=== PATIENT | female | born 1985 | race Caucasian/White ===

== ENCOUNTER 2016-07-18 11:49 | Inpatient (IN) | payer OTHER ==
[~2016-07-18] VITALS: Ht 12.7 cm; Wt 69.3 kg
--- NOTE | ~2016-07-18 | TXPLANREV ---
"PATIENT: PAT BILLINGS R | | [facility] UNIT #: [id number] | [address] AGE/SEX: 30 F : 85 | [address] | [place] [phone] ADMIT/REG DATE: 07/18/16 | ROOM: [facility] LOC: ADTC | ADTC | Treatment Plan/Staffing Review Date: 08/08/16 Treatment plan was reviewed and determined appropriate as written: yes, client is working on Grief packet and will be doing EMDR therapy on trauma of loss of 2 nephews, then the Relapse Pkt. We are hoping to have family session to share feelings letters with mom clients last day. Treatment plan was reviewed and the following changes/addition/deletions are necessary: Discharge plans were reviewed and determined appropriate as previously documented: Client is scheduled to discharge on 08/15/16, she will return to [facility] for aftercare counseling and group therapy on relapse prevention. She may seek out a specialist with EMDR as she responds well to this therapy. She also is to call sponsor 4-7x/week and attend meetings 3-4x/week. Discharge plans were reviewed and determined to be as follows: Other pertinent issues discussed during this staffing review include: Client is making good progress, seems invested in her recovery and seems appreciative of the legal intervention that helped her to get clean/sober. Staff Present: Ce Ahumada, Toshia Tello, Angelica Johnson, Crystal Tran PRIMARY COUNSELOR: Leyla Pantoja Client Signature Counselor Signature Date Time "
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
--- NOTE | ~2016-07-18 | INDIVTXPL2 ---
"PATIENT: PAT BILLINGS R | | [facility] UNIT #: [id number] | [address] AGE/SEX: 30 F : 85 | [address] | [place] [phone] ADMIT/REG DATE: 07/18/16 | ROOM: [facility] LOC: ADTC | ADTC | Individualized Treatment Plan DATE: 08/08/16 Problem Statement/Issue Identified: Client unresolved grief issues contributes to her continued drug use and spiritual struggles and needs to address these grief/spirituality issues to avoid relapse. Goal: Client is to address her grief over traumatic loss of nephews and spiritual struggles to help cope with feelings/grief and strengthen her recovery. Objectives/Activities to achieve goal: 1. Client is to fill out Grief packet, and process her feelings with counselor over loss of nephews. See counselor note. Due Date: 08/11/16 Complete: Incomplete: 2. Client is to do EMDR relaxation and see 6 minute video to get oriented to EMDR with counselor. See counselor note. Due Date: 08/08/16 Complete: Incomplete: 3. Client is to do EMDR on traumatic loss of nephews. See counselor note. Due Date: 08/11/16 Complete: Incomplete: Client Signature Date Counselor Signaure: Date Outcome/Measurement of Progress Towards Goal: Counselor Signature: Date "
--- NOTE | ~2016-07-18 | INDIVTXPL2 ---
"PATIENT: PAT BILLINGS R | | [facility] UNIT #: [id number] | [address] AGE/SEX: 30 F : 85 | [address] | [place] [phone] ADMIT/REG DATE: 07/18/16 | ROOM: [facility] LOC: ADTC | ADTC | Individualized Treatment Plan DATE: 08/08/16 Problem Statement/Issue Identified: Client needs to identify relapse warning signs and develop a plan to deal with them as they arise. Goal: Client is to learn about relapse prevention identifying her relapse triggers and how to cope with them. Objectives/Activities to achieve goal: 1. Client is to attend Relapse Prevention classes every Sunday 3pm while in treatment and participate. See class notes. Due Date: 08/15/16 Complete: Incomplete: 2. Client is to fill out Relapse Prevention packet identifying her top 5-10 relapse triggers and develop a plan of how to cope with each. Share with counselor/sponsor/aftercare counselor. Due Date: 08/15/16 and ongoing Complete: Incomplete: Client Signature Date Counselor Signaure: Date Outcome/Measurement of Progress Towards Goal: Counselor Signature: Date "
--- NOTE | ~2016-07-18 | INDIVTXPL2 ---
"PATIENT: PAT BILLINGS R | | [facility] UNIT #: [id number] | [address] AGE/SEX: 30 F : 85 | [address] | [place] [address] ADMIT/REG DATE: 07/18/16 | ROOM: [facility] LOC: ADTC | ADTC | Individualized Treatment Plan DATE: 07/21/16 Problem Statement/Issue Identified: Client continues to use drugs and involved in criminal behavior despite ongoing negative consequences. Goal: Client is to learn about alcoholism/drug addiction, identifying her consequences of her use and learning how to work a stronger AA/NA/ACUPUNCTURIST program of recovery. Objectives/Activities to achieve goal: 1. Client is to fill out Getting Started and Step 1 packets, identifying 15 values that were compromised due to use. Share with counselor and share selected pages in group. Due Date: GS 07/28/16 & St1 08/02/16 Complete: Incomplete: 2. Client is to get phone #'s of women in the 12 step programs and call as a temporary sponsor while in treatment. Share progress with counselor. Due Date: ongoing Complete: Incomplete: 3. Client is to attend and talk at AA/NA/ACUPUNCTURIST meetings weekly and participate or even ask for a topic that would benefit her. Due Date: ongoing Complete: Incomplete: Client Signature Date Counselor Signaure: Date Outcome/Measurement of Progress Towards Goal: Counselor Signature: Date "
--- NOTE | ~2016-07-18 | TXPLANREV ---
"PATIENT: PAT BILLINGS | | [facility] UNIT #: [id number] | [address] AGE/SEX: 30 F : 85 | [address] | [place] [phone] ADMIT/REG DATE: 07/18/16 | ROOM: [facility] LOC: ADTC | ADTC | Treatment Plan/Staffing Review Date: 08/01/16 Treatment plan was reviewed and determined appropriate as written: Client has finished step 1 and is to attend Family program and work on feelings letters. Treatment plan was reviewed and the following changes/addition/deletions are necessary: Discharge plans were reviewed and determined appropriate as previously documented: Discharge plans were reviewed and determined to be as follows: Client is being discharged on 08/15/16 and being referred back to [facility] in [place], plus [facility] AA/NA meetings and other AA/NA meetings and is to continue using temporary sponsor. Other pertinent issues discussed during this staffing review include: Some question came up when client was admitted to if she had a phone and this was addressed and no phone was found. Client is doing well with assignments, appears serious about working her AA/NA program of recovery and is using sponsor already!! Staff Present: Ce Gonzalez, Angelica Johnson, Lissa Pascual, Toshia Tello, Krysten Eubanks, Crystal Waggoner PRIMARY COUNSELOR: Client Signature Counselor Signature Date Time "
--- NOTE | ~2016-07-18 | INDIVTXPL2 ---
"PATIENT: PAT BILLINGS R | | [facility] UNIT #: [id number] | [address] AGE/SEX: 30 F : 85 | [address] | [place] [phone] ADMIT/REG DATE: 07/18/16 | ROOM: [facility] LOC: ADTC | ADTC | Individualized Treatment Plan DATE: 07/27/16 Problem Statement/Issue Identified: Client is experiencing family discord and lack of boundaries as a result of past drug usage and codependency tendencies. Goal: Client is to learn about effects of addiction on family and self and build honest communication with family owning her addiction and feelings to strengthen family support. Objectives/Activities to achieve goal: 1. Client is to attend and participate in family educational program to learn about how addiction has hurt her and family. See Family notes. Due Date: 07/31/16 Complete: Incomplete: 2. Client is to have a family session with mother to help with communication and hear her perspectives with the past issues/addiction. See Family note. Due Date: 07/31/16 Complete: Incomplete: 3. Client is to write feelings letters to mom/children and share with counselor/mom. See counselor/family note. Due Date: 08/15/16 Complete: Incomplete: Client Signature Date Counselor Signaure: Date Outcome/Measurement of Progress Towards Goal: Counselor Signature: Date "
--- NOTE | 2016-07-18 14:04 | NUR ---
Admit Note: Client is 30 y/o single female. She has 4 kids and is . DOC is marijuana and secondary is meth. Clt claims last use was end of May and took a couple of hits each. Came from [facility] residential where she spent last 23 days. Referred by [facility]. Lives with mother and she will do family participation. Clt had no contraband. Initial paperwork is done and she has started programming.
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
--- NOTE | 2016-07-18 20:18 | NUR ---
Education: 1 hour lecture given by counselor on relapse.
--- NOTE | 2016-07-18 20:26 | NUR ---
tech note: Client went for walk for rec, participated in guided meditation and attended AA meeting
--- NOTE | 2016-07-18 23:36 | NUR ---
Tech Note: Client attended the on unit A.A.Meeting. Client participated in Guided Meditation at 1930. Client was seen by doctor. SE: Getting admitted into treatment
--- NOTE | 2016-07-19 04:56 | NUR ---
Bed note: client was in bed with eyes closed and no distress at all bed checks.
--- NOTE | 2016-07-19 10:20 | NUR ---
Tech notes: Client is working on Getting started
--- NOTE | 2016-07-19 13:48 | NUR ---
Educational note: Client watched a video for education.
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
--- NOTE | 2016-07-19 17:17 | NUR ---
SPIRITUaL EDUCATION 1 HR. Clients were oriented to the group and learned difference between spirituality and mosque. We addressed GRATITUDE today with discussion, worksheet and activity.
--- NOTE | 2016-07-19 18:23 | NUR ---
Education: 1 Hour. Client attended "Self Esteem" lecture presented by staff.
--- NOTE | 2016-07-19 23:25 | NUR ---
tech note: client went on a walk for recreation & attended the onsite NA meeting. SE: NA meeting.
--- NOTE | 2016-07-20 05:11 | NUR ---
Bed Note: Clt lay motionless in bed with eyes closed showing no distress at all bed checks.
--- NOTE | 2016-07-20 11:17 | NUR ---
Tech Note: Client participated in Spiritual Enrichment. Client stated that she is working on, "How to Get Started in Treatment."
--- NOTE | 2016-07-20 11:30 | NUR ---
AM GRP 1.5 HRS, Ratio 1:11/ Clt offered great feedback to a peer who continues to want to argue w/ staff. This clt let her know staff is here to help them, and staying mad is going to deprive her of learning anything.
--- NOTE | 2016-07-20 17:04 | NUR ---
step education 1 hr/ Focus was on step 6 and looking at character defects and letting God remove them. Each person took some time looking at a list of character defects and wrote out answers to a set of questions and then shared and discussed. This client participated. She shared some defects are perfectionism, anxiety, and fear.
--- NOTE | 2016-07-20 19:15 | NUR ---
Education 1 Hour: Client heard a presentation on marijuana.
--- NOTE | 2016-07-20 22:12 | NUR ---
Education 1 HR: Clt watched video by Bashir "Danita Mejia" with staff present.
--- NOTE | 2016-07-20 22:37 | NUR ---
Tech Note: Clt walked for recreation, attended GM and onsite AA mtg. SE was AA mtg
--- NOTE | 2016-07-21 04:45 | NUR ---
Bed Note: Clt lay motionless in bed with eyes closed showing no distress at all bed checks.
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
--- NOTE | 2016-07-21 16:20 | NUR ---
Tech Note: Client listened to speaker Torsten Masterson and is working on Getting Started.
--- NOTE | 2016-07-21 16:46 | NUR ---
FAMILY - did call sister and no answer, did call her mom and then sister called back, they all want to be involved in her treatment. Client will get visits on Sunday with kids, sister and mom will visit. Mom says she is great daughter and mom, just needs to stay clean.
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
--- NOTE | 2016-07-21 20:58 | NUR ---
Tech note: client watched TV and movies. Walked to optional offiste AA meeting. SE:mtg with counselor
--- NOTE | 2016-07-22 04:59 | NUR ---
Bed note: Client was in bed with eyes closed and no distress at all bed checks.
--- NOTE | 2016-07-22 16:52 | NUR ---
Tech Note: Client attended the A.A.Meeting at [address] [place] [address] and is working on Step1. Client also had a visit.
--- NOTE | 2016-07-22 22:56 | NUR ---
Tech note: Client walked around the park a few times for rec. Client walked to an off site AA meeting. SE: Family
--- NOTE | 2016-07-23 05:02 | NUR ---
Bed note: client was in bed with eyes closed and no distress at all bed checks.
--- NOTE | 2016-07-23 15:33 | NUR ---
TECH NOTE: Client participated in big book study, attended mandaen, completed chores and watched tv/movies. Went on walk
--- NOTE | 2016-07-23 23:31 | NUR ---
tech note: Client participated in Community Clean & attended [employer] meeting. Client colored with peers. SE: [employer]
--- NOTE | 2016-07-24 04:46 | NUR ---
Bed note: client was in bed with eyes closed and no distress at all bed checks.
--- NOTE | 2016-07-24 15:17 | NUR ---
Tech note: Client is working on Step 1
--- NOTE | 2016-07-24 23:02 | NUR ---
Tech Note: Clt walked for recreation and attended onsite NA mtg. Watched tv and movies. SE was visits
--- NOTE | 2016-07-25 04:45 | NUR ---
Bed Note: Clt lay motionless in bed with eyes closed showing no distress at all bed checks.
--- NOTE | 2016-07-25 15:38 | NUR ---
Tech Note: Client participated in light stretching for morning exercise and went on an outdoor walk in the afternoon. Client stated that he is working on Step One.
--- NOTE | 2016-07-25 15:40 | NUR ---
1.5 hr res group/ratio 1:9/ Group heard a step one, a letter to addiction, and discussed the importants of keeping a balance of not doing to many nice things for others verses taking care of self. This client gave some good feedback and seems to be connecting with other females. She does tend to dominate the conversation and her along with some others had to be told to not talk out of turn as sometimes there were several trying to talk at once.
--- NOTE | 2016-07-25 15:48 | NUR ---
Education 1 Hour: Client watched the video, "How to Sabotage your Treatment."
--- NOTE | 2016-07-25 23:06 | NUR ---
Tech note: Client walked a mile for rec, did guided meditation and attended an onsite AA meeting. Client was up past genefew, r/d for being in the shower late. SE; 30 dayd
--- NOTE | 2016-07-26 04:23 | NUR ---
Education: 1 Hour. Client attended presentation by staff on "Step 1."
--- NOTE | 2016-07-26 05:17 | NUR ---
Bed note: Client was in bed with eyes closed and in no apparent distress at all bed checks.
--- NOTE | 2016-07-26 09:42 | NUR ---
Shonda notes: Client is working on BB and mtg with yong
--- NOTE | 2016-07-26 10:00 | NUR ---
IS 1 hr/ Client reports she is fine now as in Dr ruth she had complained of stomach cramp Sunday night and is . She was told by this counselor if this happens again and has any bleeding needs to go to ER. She has ultrasound today. Client did have GS packet done and has started on step 1. She assumes her family will be here . She shared she had busy weekend with chlld visits and really enjoyed this, more interaction and playing with them which she credits to recovery. Client expressed loves recovery. Is to finish step 1 and share other GS packet in group. Did go over GS with her.
--- NOTE | 2016-07-26 11:40 | NUR ---
Group 1.5 hr Ratio 1:7/Topics today were orientating two new clients to group rules and goals, a good bye letter to an addiction and being able to say no. Client shared how she struggles saying not to people especially family. Client heard codependency and or Alonon may be helpful.
--- NOTE | 2016-07-26 13:30 | NUR ---
Education note: Client attend educational speaker Eileen Zepeda
--- NOTE | 2016-07-26 16:27 | NUR ---
SPIRITUAL EDUCATION 1 HR. Newcomers were oriented to group. Todays topic was addicted self vs spiritual self which we discussed first then they depicted the contrast in artwork. The ones that finished first wrote letters to welcome anonymous newcomers.
--- NOTE | 2016-07-26 22:51 | NUR ---
Tech note : Client played catch phrase for rec and attended an onsite NA meeting. SE; Spirituality
--- NOTE | 2016-07-27 04:42 | NUR ---
Bed note: client was in bed with eyes closed and no distress at all bed checks.
--- NOTE | 2016-07-27 07:03 | NUR ---
Medication Note: Client took prn Tylenol for H/A rated 10.
--- NOTE | 2016-07-27 10:50 | NUR ---
Tech Note : Client missed morning meditation due to a severe headache. Client was given prn medication and returned to programming. Client participated in Spiritual Enrichment. Client stated that she is working on Step One.
--- NOTE | 2016-07-27 11:30 | NUR ---
Group 1.5 hrs. Ratio 1:9/ Topics were orientation for new clients to group, rules and goals. One client shared feeling packet.others gave feed back and other feelings were discussed. Client shared that she feels calm when she is angry because she knows that when she says something when angry it is hurtful to the other person.and she regrets saying it later. Her biggest fear is not knowing what happens next.
--- NOTE | 2016-07-27 13:10 | NUR ---
Education 1 Hour: Client heard a recovery speaker who addressed the subject of hope.
--- NOTE | 2016-07-27 14:00 | NUR ---
IS .5 hr/ Counselor met with client and mom was to be here by 1:30 but did not get here until 2:30. Client and counselor discussed more about her aftercare, she plans to live at home in [place], she can have visits daily for 8-10 hours a day all but Sunday she stated. She shared how she is very clean and involved with her kids, and how brought a portable oven and griddle so could make pancakes and cupcakes/cookies with her kids as they like to do those types of things. She told stor that one time she was accused of leaving a visit room a mess but her watermelon harvesting supervisor of visits defended her saying she always cleans room better than they found it. She is assigned to write feelings letters. Is working on step 1, told her to do page 11 first as it helps with letters. Hope to have family session at 1:00 on Sunday.
--- NOTE | 2016-07-27 17:00 | NUR ---
FAMILY EDUCATION 3 HRS. Client was accompanied by her mom. They took part in the discussion on the disease concept. Mom arrived a little late and was active in discussion and shared how hard it had been to watch her daughter's behaviors.
--- NOTE | 2016-07-27 20:35 | NUR ---
Education: 1 Hour. Client attended Morgan Hernández video "Step 5."
--- NOTE | 2016-07-27 22:58 | NUR ---
Client went on a walk for rec, participated in guided meditation, and attended the on unit A.A.Meeting. SE: Family Counseling
--- NOTE | 2016-07-28 05:29 | NUR ---
Bed Note: Client was in bed and motionless at all bed checks.
--- NOTE | 2016-07-28 12:28 | NUR ---
Group 1.5 Hr Ratio 03/07/Topics today were two Getting Started Packets, talking about when it was discovered when they knew they were addicted and relationships. Client shared how she could relate and talked about whatshe knows about the five love languages and how they are important to her.
--- NOTE | 2016-07-28 13:10 | NUR ---
PEER REVIEWS 1.5 HRS: Clt participated in peer review process and was able to give open, honest feedback to those receiving a review.
--- NOTE | 2016-07-28 14:27 | NUR ---
Tech Note: Client watched Recovery Issues Part 3. Is working on Step 1.
--- NOTE | 2016-07-28 20:17 | NUR ---
Tech note: Clt read guidelines as a grp, attended optional AA mtg and watched tv/movies. SE peer review
--- NOTE | 2016-07-29 05:20 | NUR ---
BED NOTE: Client was in bed, motionless with eyes closed all bed checks.
--- NOTE | 2016-07-29 11:11 | NUR ---
Medication Note: Client took prn Tylenol for H/A rated at 5.
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
--- NOTE | 2016-07-29 16:50 | NUR ---
Tech Note: Client attended NA Panel today and is working on Step 1 and the Big Book. She had visitors.
--- NOTE | 2016-07-29 20:14 | NUR ---
TECH NOTE: Client participated in beads for REC, attended offsite AA meeting and watched TV/Movies. SE: visits
--- NOTE | 2016-07-30 04:55 | NUR ---
Bed Note: Clt lay motionless in bed with eyes closed showing no distress at all bed checks.
--- NOTE | 2016-07-30 16:11 | NUR ---
Tech Note: Client is working on Feelings Letters. She went to [facility] and had visitors.
--- NOTE | 2016-07-30 22:56 | NUR ---
Tech Note: Client attended the on unit A.A.Panel. SE: Martir
--- NOTE | 2016-07-31 04:41 | NUR ---
Client was in bed and motionless at all bed checks.
--- NOTE | 2016-07-31 09:56 | NUR ---
Tech notes: Client is working on Fl's
--- NOTE | 2016-07-31 11:30 | NUR ---
Group 1.5 hr/ 10:1 Clients did give feedback for 2 peer reviews and then heard 2 peers share GS packets. This client was attentive and offered some feedback.
--- NOTE | 2016-07-31 13:36 | NUR ---
Education note: Client attended educational speaker Melissa on Tobacco
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
--- NOTE | 2016-07-31 17:00 | NUR ---
FAMILY EDUCATION 3 hrs. Client was accompanied by her mom. They took part in the discussion on the family roles, codependency and detachment. Client's mom was noted to have a placed a COURAGE TO CHANGE book in her purse which she did return after staff advised those books are used for reading each week.
--- NOTE | 2016-07-31 18:17 | NUR ---
EDUCATION 1 HR: Counselor gave lecture on forgiveness.
--- NOTE | 2016-07-31 21:00 | NUR ---
FAMILY GROUP 5:1/ HR: Client, peers and attending family members heard two families process FEELINGS LETTERS. Much of the focus tonight was on willingness to followthrough with what they are learning in treatment, i.e. sponsorship, meetings, communication, dealing with feelings, etc. This client attended alone, but she was active throughout with feedback, support, clarifying questions and some personal sharing. Client confronted a female peer for her apparent lack of feelings as she heard her mother's emotional letter. Client express her own guilt and shame for minimizing the effects her chemical use has had on her children and how it has sabotaged any career efforts on her part.
--- NOTE | 2016-07-31 23:32 | NUR ---
tech note: Client attended Family Session. SE: Family.
--- NOTE | 2016-08-01 05:38 | NUR ---
BED NOTE: Client was in bed, motionless with eyes closed all bed checks.
--- NOTE | 2016-08-01 14:31 | NUR ---
A.M. 1.5 hr res group/ratio 1:8/ Group heard 2 how to get started assignments and a letter to addiction. Discussed the importants of telling old friends you no longer use instead of I cant right now. This client gave a lot of feedback and advice. She then shared her how to get started and did a fair job. She got close to tears when talking about her kids. She was told to not itch herself or have her hands inside her shirt in group as she said she felt itchy and was scratching her chest area or reajusting somthing.
--- NOTE | 2016-08-01 15:00 | NUR ---
Relapse Prevention, 1.0 hours, Client attended and actively participated in relapse prevention education which focused on completing a relapse quiz and discussion.
--- NOTE | 2016-08-01 16:29 | NUR ---
Tech Note: Client participated in light stretching for morning exercise and went on an outdoor walk in the afternoon. Client stated that she is working on writing Feelings Letters. Client met with representatives from [employer].
--- NOTE | 2016-08-01 17:22 | NUR ---
Education 1 Hour: Client heard a presentation on Sexually Transmitted Disease.
--- NOTE | 2016-08-01 23:35 | NUR ---
TECH NOTE: Client Attended Alumni meeting, played Catch Phrase for REC, participated in Guided Meditation, and attended AA meeting. SE: Michele Hurst
--- NOTE | 2016-08-02 04:36 | NUR ---
Bed Note: Client was in bed and motionless at all bed checks.
--- NOTE | 2016-08-02 11:01 | NUR ---
Tech Notes: Client is working on Fl's
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
--- NOTE | 2016-08-02 12:52 | NUR ---
Education Note: Client attended education by [facility]
--- NOTE | 2016-08-02 18:20 | NUR ---
EDUCATION 1HR: Counselor gave presentation on Unresolved Anger.
--- NOTE | 2016-08-02 18:49 | NUR ---
SPIITUAL EDUCATION 1 HR. ORIENTED NEWCOMERS, AND TODAYS TOPIC WAS THE SPIRITUAL QUESTION GAME DESIGNED TO START PEOPLE THINKING ALONG SPIRITUAL LINES AND GET MORE COMFORTABLE DISCUSSING IT.
--- NOTE | 2016-08-02 22:31 | NUR ---
TECH NOTE: Client went on a walk for REC and attended NA meeting. SE: meeting with counselor
--- NOTE | 2016-08-03 04:49 | NUR ---
BED NOTE: Client was in bed, motionless with eyes closed all three bed checks.
--- NOTE | 2016-08-03 11:30 | NUR ---
Morning group: 1:10: 1.5 hrs. Clt attended and actively participated ingroup discussion. Gave good feedback on the feeling of shame and guilt. Commented about knowing what she needs to do to stay clean and that it is going to take more than willpower. Has a challenge for 24 hours to ask for help. Guerita Lea, student
--- NOTE | 2016-08-03 14:00 | NUR ---
Tech Note: Clt went on walk, watched "How to Sabotage Your Treatment" and is working on Feelings Letters and the Big Book.
--- NOTE | 2016-08-03 16:13 | NUR ---
Step education 1 hr/ Focus of education was on step 8 making amends. Each person wrote down answers of a set of questions on step 8 and then we discussed. This person participated and on the question do I have a relationship that needs healing? She said yes with her mom and kids.
--- NOTE | 2016-08-03 19:56 | NUR ---
Education Note 1 HR: Clt watched video by Yunior Montemayor entitled "My Attitude".
--- NOTE | 2016-08-03 22:55 | NUR ---
Tech Note: Client Participated in guided meditation and attended the on site A.A.Meeting. Client played a game for rec. SE: A.A.Meeting
--- NOTE | 2016-08-04 05:03 | NUR ---
Bed Note: Client was in bed and motionless at all bed checks.
--- NOTE | 2016-08-04 12:54 | NUR ---
AM RES GROUP 1.5 HRS. RATIO 03/09. Topics today were on assignments shared, marijuana, and addiction concept. We also oriented newcomers. This client was a bit controlling but did offer good questions and feedback.
--- NOTE | 2016-08-04 13:00 | NUR ---
PEER REVIEWS 1.5 HRS: Mary participated in peer review process and received her own. She heard she is a child, likes to help others, to take the focus off herself, minimizes, needs approval and acceptance, is trying to buy her way into people's lives, overconfident, is manipulative, needs to work on herself, is too positive, puts on masks tries to fit in anywhere, controlling, manipulative, childish. She felt glad.
--- NOTE | 2016-08-04 13:29 | NUR ---
Tech Note: Clt joined group on outside walk and watched "Marijuana" by Yunior Montemayor. Clt is working on Feelings Letters.
--- NOTE | 2016-08-04 21:11 | NUR ---
Tech Note: Clt read guidelines with grp, attended offsite AA mtg, used phone and watched tv/movies. SE was osvaldo
--- NOTE | 2016-08-04 23:10 | NUR ---
Tech note: Client played games and watched movies. Client walked to an offsite AA meeting. SE: Being a osvaldo
--- NOTE | 2016-08-05 04:06 | NUR ---
Bed Note: Clt lay motionless in bed with eyes closed showing no distress at all bed checks.
--- NOTE | 2016-08-05 16:38 | NUR ---
Tech Note: Client attended A.A.Meeting at [facility] and [place] and is working on Feelings Letters and Big Book. Client also had a visit today.
--- NOTE | 2016-08-05 23:44 | NUR ---
Tech note: Client played catch phase for rec, had cake to celebrate a peers birthday and walked to an offsite AA meeting. She had issues with a peer, they had words and things got out of control. There was name calling and rasied voices. Crystal was called in and the girls did work things out.
--- NOTE | 2016-08-06 04:38 | NUR ---
tech note: client was motionless in no distress at all bed checks.
--- NOTE | 2016-08-06 16:23 | NUR ---
Tech Note: Client working on Feelings Letters and had visitors.
--- NOTE | 2016-08-06 22:33 | NUR ---
TECH NOTE: Client attended AA panel speaker, participated in community clean and watched TV/movies. Attended NURSING DIRECTOR. Had eyes closed in AA panel. Had roses delivered when kids food was picked up. SE: visits/ NURSING DIRECTOR
--- NOTE | 2016-08-07 05:35 | NUR ---
tech note: client was motionless in no distress at all bed checks.
--- NOTE | 2016-08-07 10:45 | NUR ---
Tech Notes: Client is working on Fl's and was late for meditation
--- NOTE | 2016-08-07 11:30 | NUR ---
Experiential Group 1.5 hr/ All clients participated in family sculpturing to gain insight into family dynamics/roles by playing roles, giving feedback and relating. This client was involved and attentive.
--- NOTE | 2016-08-07 14:03 | NUR ---
Education Note: Client attended educational speaker Buck Wasserman
--- NOTE | 2016-08-07 16:00 | NUR ---
Recovery 101 1 hr/ Clients all were asked to share with each other how to get the most out of treatment and also those that went through Family Program shared about feelings letters are powerful. This client was attentive and shared.
--- NOTE | 2016-08-07 18:49 | NUR ---
Education 1Hr: Clt attended lecture on Adult Chidren of Alcoholics given by counselor.
--- NOTE | 2016-08-07 22:47 | NUR ---
Tech Note: Client played a game for rec and attended the on unit N.A.Meeting. SE: Rec
--- NOTE | 2016-08-08 04:12 | NUR ---
Bed Note: Clt lay motionless in bed with eyes closed showing no distress at all bed checks.
--- NOTE | 2016-08-08 10:00 | NUR ---
IS 1 hr/ Client did read feelings letters to her mom and oldest child. She did excellent job and was tearful. Client processed feelings, seems to be opening up. Did discuss treatment planning and is done next week so will refer her to do more EMDR at [facility]. Did safe-place today and will address one issue with her trauma this Sunday-grief of her 2 nephews deaths. She was given Grief packet to do. Client is to call mom to not bring all the food, just 2-3 dry snacks and enough juice boxes for each child.
--- NOTE | 2016-08-08 15:08 | NUR ---
Relapse Prevention, 1.0 hours, Client attended and actively participated in relapse prevention which focused on avoiding relapse and relapse prevention plan.
--- NOTE | 2016-08-08 15:10 | NUR ---
Tech Note: Client watched "The Disease of Alcoholism" and is working on Feelings Letters.
--- NOTE | 2016-08-08 15:20 | NUR ---
Tech Note: Client was informed that, per her counselor, she was to call her mother. Purpose is to inform her that only two small containers of dry snacks and one small drink will be allowed, for her children when they visit. Client's children had been brought for visitation with FAR TOO MANY snacks.
--- NOTE | 2016-08-08 16:03 | NUR ---
Morning Group, 03/06 ratio, 1.5 hours, Client attended and actively participated in group discussion. Client listened to her peers as they shared thier Getting Started Packets.
--- NOTE | 2016-08-08 18:58 | NUR ---
Education 1HR: Clt attended lecture given by counselor on co-dependency.
--- NOTE | 2016-08-08 22:33 | NUR ---
Tech note : Client spent rec making welcome letters for new clients and father's day cards. Client participated in guided meditation and attended an onsite AA meeting. SE; EMDR
--- NOTE | 2016-08-09 04:03 | NUR ---
Bed Note: Clt lay motionless in bed with eyes closed showing no distress at all bed checks.
--- NOTE | 2016-08-09 10:03 | NUR ---
Tech Note: Client is working on Grief pkt
--- NOTE | 2016-08-09 13:19 | NUR ---
Education notes: Client attended educational speaker Martin Poe
--- NOTE | 2016-08-09 14:47 | NUR ---
AM RES GROUP 1.5 HR. RATIO 03/07. Topics today were assignments shared, forgiving self, spirituality, and individual issues. This client appeared to be dozing off and got a little irritable and defensive when asked to stand up. She had very minimal input today.
--- NOTE | 2016-08-09 18:20 | NUR ---
Education: 1 Hour: Client attended "Disease Concept Lecture" presented by staff.
--- NOTE | 2016-08-09 22:38 | NUR ---
Tech note: Client went outside for rec and played catch phrase. Client went to an onsite NA meeting and celebrated a peers birthday with icecream and cupcakes. SE; No headach
--- NOTE | 2016-08-10 04:03 | NUR ---
tech note: client was motionless in no distress at all bed checks.
--- NOTE | 2016-08-10 15:32 | NUR ---
Tech Note: Client participated in Spiritual Enrichment in the morning and went for an outdoor walk in the afternoon. Client stated that he is working on, "Grief."
--- NOTE | 2016-08-10 19:21 | NUR ---
Eduction: 1 Hour.Client attended Yunior Montemayor video "My Behavior."
--- NOTE | 2016-08-10 19:40 | NUR ---
Education: 1 Hour.Client attended Yunior Montemayor video "My Behavior."
--- NOTE | 2016-08-10 22:32 | NUR ---
Tech note: Client went outside and the group played 2 truths and a lie then went for a short walk. Client participated in guided meditation and went to an onsite AA meeting. SE; Group
--- NOTE | 2016-08-11 05:29 | NUR ---
Bed note: Client was motionless with eyes closed at all bed checks.
--- NOTE | 2016-08-11 12:01 | NUR ---
Group 1.5 Hr Ratio 1:11/Topics today were orientating a new member to group rules and goals. Three Getting Started assignments were shared. Client shared a group rule but was quiet the rest of group.
--- NOTE | 2016-08-11 13:25 | NUR ---
Tech Note: Client went on group walk and watched "The Sound of Silence". Clt working on her Grief Packet.
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
--- NOTE | 2016-08-11 22:37 | NUR ---
Tech note: client watched tv and movies. had nail indonesian, locked it up. Attended optional offsite AA mtg. SE:EMDR
--- NOTE | 2016-08-12 04:20 | NUR ---
Bed note: Client was in bed with eye closed and no distress at all bed checks.
--- NOTE | 2016-08-12 16:21 | NUR ---
Tech Note: Client watched a video, "Spiritual Awakening" by Isaiah Macias in the morning. Client stated that she is working on, "Grief."
--- NOTE | 2016-08-12 20:35 | NUR ---
TECH NOTE: Client played Gestures for REC, attended off site AA meeting and watched TV/movies. SE: nap
--- NOTE | 2016-08-13 04:12 | NUR ---
BED NOTE: Client was in bed, motionless with eyes closed all bed checks.
--- NOTE | 2016-08-13 16:18 | NUR ---
Tech Note: Client attended buddhism and went for an optional outdoor walk. Client stated that she is working on, "Grief." Client received visitors.
--- NOTE | 2016-08-13 22:45 | NUR ---
Tech note: Client listened to the E,S & H of a member of the AA panel that gave up his time to spend with us this evening. Client watched movies and participated in community clean. Alex went to an onsite [facility] meeting.
--- NOTE | 2016-08-14 04:37 | NUR ---
Bed Note: Clt lay motionless in bed with eyes closed showing no distress at all bed checks.
--- NOTE | 2016-08-14 09:57 | NUR ---
Tech notes: client is working on Grief Pkt and Fl's
--- NOTE | 2016-08-14 11:53 | NUR ---
Experiential Group 1.5 hr/ 21:3 Clients participated in Family sculpturing by role-playing, feedback and relating. This client was not paying much attention in the beginning of group. She participated in second roll-play and was more open to giving feedback. Guerita Lea, student
--- NOTE | 2016-08-14 13:03 | NUR ---
Education note: Client attended educational speaker Esthela on Marijuana.
--- NOTE | 2016-08-14 16:00 | NUR ---
RECOVERY 101 1 HR/ Clients all filled out 30 questions on what drugs they experienced consequences with to help with awareness/denial. They shared their answers and all discussed the early stage symptoms of addiction and what defines early stages of addiction.
--- NOTE | 2016-08-14 17:00 | NUR ---
IS 1 hr/ Did first meet with clients Drug Court officers, they found out she is doing well and if would struggle/relapse then would need a 1/2way house. Client did talk to them privately before this session and felt it went good. Did go over her Relapse Prevention packet, and did fill out Continued Care Plan. Client is to do Survey tonight and will have family session with her mom to share feelings letter tomorrow 10am before discharging.
--- NOTE | 2016-08-14 18:23 | NUR ---
Education 1HR: Clt attended lecture given by counselor on "Communication".
--- NOTE | 2016-08-14 22:45 | NUR ---
TECH NOTE: Client went on a walk for REC and attended NA meeting SE: Talk with Peers, graduation erica
--- NOTE | 2016-08-15 03:58 | NUR ---
BED NOTE: Client was in bed, motionless with eyes closed all three bed checks.
--- NOTE | 2016-08-15 11:00 | NUR ---
FAMILY SESSION 1 HR/ Client and mom present, counselor did talk about clients progress and aftercare, client did share feelings letter with her mom and client and mom both were tearful. Mom shared her love and closeness with client and wanting the best for her. Client was given medallion for completion of treatment with mom present. Is to go to [facility] Sun or 8am to get in aftercare.
--- NOTE | 2016-08-15 13:43 | NUR ---
Education Note: Client viewed a presentation on hand hygiene and proper sneezing technique.
--- NOTE | 2016-08-15 15:54 | NUR ---
Tech Note: Client participated in light stretching for morning exercise and went on an outdoor walk in the afternoon. Client stated that she is working on reading the Big Book.
--- NOTE | 2016-08-15 15:55 | NUR ---
DISCHARGE NOTE Client completed treatment and left the facility, taking all personal belonigns with her, inclueding home medications that had been stored at the pharmacy. Discharge instructions were reviewed and a signed copy provided to the client.
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
== END 2016-08-15 10:50 | disposition home or self-care (01) | DRG 781 ==
LOC: ADTC 11:49
PROVIDERS: ADMIT Family Medicine
PROC: HZ43ZZZ Group Counseling for Substance Abuse Treatment, 12-Step (ICD-10-PCS; principal; 2016-07-18)
PROC: HZ63ZZZ Family Counseling for Substance Abuse Treatment (ICD-10-PCS; principal; 2016-07-18)
PROC: HZ34ZZZ Individual Counseling for Substance Abuse Treatment, Interpersonal (ICD-10-PCS; principal; 2016-07-18)
DX: O99.321 Drug use complicating pregnancy, first trimester (principal); F15.20 Other stimulant dependence, uncomplicated; F12.20 Cannabis dependence, uncomplicated; O26.891 Other specified pregnancy related conditions, first trimester; M54.2 Cervicalgia; G89.29 Other chronic pain; Z98.1 Arthrodesis status; Z65.3 Problems related to other legal circumstances; Z63.72 Alcoholism and drug addiction in family; Z3A.00 Weeks of gestation of pregnancy not specified

== ENCOUNTER → 2016-07-26 | Outpatient (CLI) | payer SELFPAY | END | disposition home or self-care (01) | LOC: RAD.S 11:00 | DX: Z34.81 Encounter for supervision of other normal pregnancy, first trimester (principal); Z3A.08 8 weeks gestation of pregnancy ==